=== PATIENT | male | born 1960 | race Caucasian/White ===

== ENCOUNTER 2018-12-03 09:59 | Emergency (ER) | payer OTHER ==
[~2018-12-03] VITALS: Ht 182.9 cm; Wt 97.2 kg
[2018-12-03] MEDS ORDERED: LISINOPRIL-HCT1 EAC2 PO (10:07)
[2018-12-03] MEDS ORDERED: ASACOL HD800 MG PO (10:08)
[2018-12-03 10:46] LABS: URINE BILIRUBIN NEGATIVE (Negative); URINE BLOOD NEGATIVE (Negative); URINE CLARITY CLEAR; URINE COLOR YELLOW; URINE GLUCOSE-RANDOM NEGATIVE (Negative); URINE KETONES NEGATIVE (Negative); URINE LEUKOCYTES-REFLEX NEGATIVE (Negative); URINE NITRITE-REFLEX NEGATIVE (Negative); URINE PROTEIN NEGATIVE (Negative); URINE SPECIFIC GRAVITY <= 1.005 (1.005-1.030); URINE UROBILINOGEN 0.2 E.U./dl (0.2-1.0)
[2018-12-03 11:02] LABS: AMP/METHAMP Negative (Negative); BARBITURATES Negative (Negative); BENZODIAZEPINES Negative (Negative); COCAINE Negative (Negative); METHADONE Negative (Negative); OPIATES Negative (Negative); PCP Negative (Negative); THC Negative (Negative)
[2018-12-03 11:08] LABS: ABSOLUTE BASOPHILS 0.1 thou/uL (0.0-0.2); ABSOLUTE EOSINOPHILS 0.4 thou/uL (0.0-0.7); ABSOLUTE LYMPHOCYTES 1.9 thou/uL (0.8-5.3); ABSOLUTE MONOCYTES 0.4 thou/uL (0.0-1.2); ABSOLUTE NEUTROPHILS 5.5 thou/uL (1.6-8.1); BASOPHILS 0.8 %; EOSINOPHILS 5.1 %; HEMATOCRIT 47.5 % (42.0-52.0); HEMOGLOBIN 16.6 gm/dL (14.0-18.0); LYMPHOCYTES 23.2 %; MCH 32.2 pg (26.0-34.0); MCHC 34.9 g/dL (28.0-37.0); MCV 92.1 fL (80.0-100.0); MONOCYTES 5.3 %; MPV 8.3 fl. (7.2-11.1); NUCLEATED RBCS 0 /100WBC; PLATELET COUNT* 217 thou/uL (150-400); POLYS 65.6 %; RBC 5.15 mil/uL (4.50-6.00); WBC 8.3 thou/uL (4.0-11.0)
[2018-12-03 11:20] LABS: ANION GAP 7 mmol/L (7-16); BUN 12 mg/dL (7-18); CALCIUM 9.1 mg/dL (8.5-10.1); CHLORIDE 103 mmol/L (98-107); CO2 26 mmol/L (21-32); CREATININE 0.8 mg/dL (0.6-1.3); GLUCOSE 129 mg/dL (70-99); POTASSIUM 3.2 mmol/L (3.5-5.1); SODIUM 136 mmol/L (136-145)
[2018-12-03 11:31] LABS: ALBUMIN 3.6 g/dL (3.4-5.0); ALKALINE PHOSPHATASE 60 U/L (46-116); NT-PRO BRAIN NAT PEPTIDE 35 pg/mL (<300); SGOT 44 U/L (15-37); SGPT 113 U/L (30-65); TOTAL BILIRUBIN 0.5 mg/dL (<0.1-1.0); TOTAL PROTEIN 6.8 g/dL (6.4-8.2); TROPONIN-I LEVEL <0.06 ng/mL (<0.06)
[2018-12-03 12:36] VITALS: BP 126/81
--- NOTE | 2018-12-03 16:18 | EKG ---
[place] [address] ELECTROCARDIOGRAM REPORT Name: WOJCIECH TRUJILLO [id number] Admission: 12/03/18 Attend Phys: Discharge: 12/03/18 Date of : 64 Report #: [id number] THIS REPORT FOR: //name// [facility] ED Test Date: 2018-12-03 Test Time: 10:21:26 Pat Name: WOJCIECH TRUJILLO Department: Room: Gender: M Head Of Ethics And Compliance: : 1960 Requested By: Sid Barry Order Number: [id number] MD: Tonio Gaona Measurements Intervals [place] Rate: 68 P: 53 ND: 144 QRS: -18 QRSD: 102 T: 18 QT: 431 QTc: 459 Interpretive Statements Sinus rhythm Probable left atrial enlargement Borderline left axis deviation Abnormal R-wave progression, early transition No previous ECG available for comparison Electronically Signed On 12-03-2018 16:18:38 FURNACE E[employer] by Tonio Gaona [email or web address] <ELECTRONICALLY SIGNED> By: Tonio Gaona MD, [facility] 12/03/18 1618 1021 102 Tonio Gaona MD, FACC /EPI
== END 2018-12-03 12:37 | disposition home or self-care (01) ==
LOC: M.ERS 09:59
PROVIDERS: Nurse Practitioner Family
DX: E86.0 Dehydration (principal); R55 Syncope and collapse; I10 Essential (primary) hypertension; K58.9 Irritable bowel syndrome, unspecified; F17.210 Nicotine dependence, cigarettes, uncomplicated; Z79.899 Other long term (current) drug therapy